=== PATIENT | male | born 1955 | race Caucasian/White ===

== ENCOUNTER 2022-09-21 09:44 | Emergency (ER) | payer OTHER, SELFPAY ==
[2022-09-21 09:45] VITALS: BP 152/84; PULSE 94; RESP 18; TEMP 36.3; O2SAT 99; BMI 29.4
--- NOTE | 2022-09-21 10:26 | CT_ITS ---
STUDY: CT ABDOMEN AND PELVIS WITHOUT CONTRAST REASON FOR EXAM: Male, 67 years old. Right flank pain. History of kidney stones. RADIATION DOSAGE (If Supplied By Facility): CTDIvol = ( 7.93 ) mGy, DLP = ( 372.27 ) mGycm TECHNIQUE: Transaxial images were obtained from the dome of the diaphragm to the symphysis pubis without oral contrast, and without intravenous contrast. Sagittal and coronal images were reconstructed. Individualized dose optimization techniques were used for this CT. COMPARISON: Comparison is made with prior study dated 02/19/2016. FINDINGS: Stable mild increased markings at the lung bases suggestive of atelectasis and/or scarring. Coronary artery calcification. Mild degree of anterior pericardial thickening suggestive of a small effusion. There is hepatomegaly with diffuse hepatic enlargement. Normal gallbladder and extrahepatic biliary system. Normal spleen. There are pancreatic calcifications in the distribution of the ducts consistent with chronic pancreatitis. Normal bilateral adrenal glands. Moderate degree of right hydronephrosis due to a 3.3 mm calculus at the right ureterovesical junction. Normal left kidney. There is a small hiatal hernia. Normal small intestine. Large amount of fecal material is seen throughout the colon. The appendix is visualized and appears normal. There is diffuse atherosclerotic calcification of the abdominal aorta, without a demonstrated aneurysm. Normal inferior vena cava. Normal retroperitoneum. Normal urinary bladder. There is enlargement of the prostate gland. It measures 5.5 cm by 6 cm. This causes indentation of the bladder base. Prostatic calcifications are seen within it. There is a small umbilical hernia containing fat. There is evidence of a calcified injection granulomas overlying the right gluteal muscle. There are diffuse degenerative changes of the visualized lumbar spine. CT/Abdomen/Pelvis without Cont IMPRESSION: Right-sided hydronephrosis due to a 3.3 mm calculus at the right ureterovesical junction. Hepatomegaly. Findings suggestive of a small pericardial effusion. Prostatic enlargement with indentation at the bladder base. Punctate calcifications in the pancreas most likely secondary to chronic pancreatitis. Electronically Signed: Emile Fernandez MD at 11:27 EST ,
--- NOTE | 2022-09-21 10:27 | EDS_ITS ---
HPI History of Present Illness Chief Complaint: Back Detail of Chief Complaint: Right flank pain intermittent for 2 weeks. Informant: patient Onset/Context/Timing Onset: Weeks Context: Gradual Onset Timing: Intermittent Quality: Sharp Current Severity: Mild Maximum Severity: Mild Worsened by: improves with Nothing Relieved by: Nothing Associated Symptoms Associated Symptoms: Negative for Numbness, Tingling, Abdominal Pain, Dysuria, Unable to Ambulate, Unable to Transfer, Urinary Retention, Constipation or Fecal Incontinence Narrative Narrative: 67-year-old male history of prior kidney stone. Complaining of right flank pain intermittently for 2 weeks. Patient states initially he thought this was sciatica but states nothing particular makes it better or worse. Naprosyn has been no relief. There is no change with movement. He denies any fall injury or trauma. No hematuria. He had a kidney stone in the past and said it felt somewhat like this. Denies any fever or chills. Denies any difficulty urinating. Prior similar symptoms: Yes Recent Illness/Hospitalization: No PFSH PFSH Medical History BPH (benign prostatic hyperplasia) Kidney stone Sciatic nerve disease Home Medications tamsulosin 0.4 mg capsule 0.4 mg PO DAILY ##10 02/19/16 [Rx Last Taken Unknown] hydrocodone-acetaminophen 5-325mg 5mg-325mg 1 tab PO Q4H PRN pain 3 days #12 tabs 09/21/22 [Rx Last Taken Unknown] Allergy/AdvReac Type Severity Reaction Status Date / Time No Known Allergies Allergy Verified 09/21/22 09:45 Social History Smoking Status: Never smoker ROS ROS ED ROS Narrative Right flank pain. No other complaints. Review of Systems ROS Unobtainable: Denies due to encephalopathy Constitutional Constitutional ED: Denies chills or fever(s) Eyes Eyes: Denies blurry vision ENT ENT ED: Denies ear pain Cardiovascular Cardiovascular: Denies chest pain Respiratory/Chest Respiratory/Chest: Denies dyspnea Gastrointestinal Gastrointestinal: Denies abdominal pain Genitourinary Genitourinary ED: Denies dysuria or hematuria Musculoskeletal Musculoskeletal: Reports back pain; Denies arthralgias Integumentary Denies abscess or Abrasions Neurologic Neurologic: Denies headache(s) Psychiatric Psychiatric: Denies anxiety Endocrine Endocrinology: Denies cold intolerance Hematologic/Lymphatic Hematologic/Lymphatic: Denies easy bleeding Allergic/Immunologic Allergic/Immunologic ED: Denies mouth swelling or tongue swelling EXAM Physical Exam Narrative Exam Narrative: Well-appearing 67-year-old male. Vital signs stable afebrile. No acute distress. Standing up as I walked in the room. H EENT exam unremarkable. Lungs clear. Heart regular rhythm. Abdomen soft nontender. Moving all 4 extremities. Back there is no reproducible tenderness. It is along his right flank below his ribs. There is no ecchymosis or bruising. No SI joint tenderness. Negative straight leg raise. Neurovascular exam is normal. Const Vital Signs: 09/21/22 09:45 Temperature 97.3 F L Temperature Source Temporal Pulse Rate 94 Respiratory Rate 18 Blood Pressure 152/84 H Blood Pressure Mean 106 Pulse Ox 99 Oxygen Delivery Method Room Air Positive well nourished and well developed; Negative for obese, cachectic, contractures or unkempt General Appearance ED: well developed and NAD; Negative for unkempt, cachectic, contractures or pallor Nutritional Appearance: Negative for cachectic or obese HEENT Reports moist mucous membranes Negative for trauma or tenderness Eyes PERRL and EOMs intact bilaterally Neck no lymphadenopathy, supple and no JVD General: Negative for tenderness Thyroid: Negative for other Cardio regular rate, regular rhythm, S1 normal heart sound, S2 normal heart sound and no murmurs GI normal to inspection, nondistended, normoactive bowel sounds, soft to palpation, non-tender, non-distended and no masses Inspection: Negative for abdominal distention Palpation: Negative for tender or guarding Back/Spine normal to inspection and no thoracic nor lumbar tenderness Back/Spine Narrative: No reproducible flank tenderness. Thoracic Spine / Upper Back: Negative for paraspinal muscle tenderness Lumbar Spine / Lower Back: Negative for ROM limited Extremity normal to inspection General Extremety ED: Negative for edema General Extremity: Negative for edema Neuro oriented x3 Sensorium / Orientation: alert; Negative for confused, lethargic or stuporous Motor Exam: strength 5/5 throughout Psych mental status grossly normal Appearance: Negative for unkempt Attitude: No agitated Mood & Affect: Negative for depressed, sad or tearful Skin no rashes or lesions noted and no wounds General Skin Exam: Negative for jaundice or pallor Lesions: No lesion noted Rashes: No rashes noted Trauma: Negative for abrasion Wounds: Negative for wounds noted MDM MDM MDM Narrative Medical decision making narrative: 67-year-old male with right flank pain. History of prior kidney stone. The pain has been intermittent for 2 weeks. He has no reproducible musculoskeletal pain. Clinically this is not sciatica. He will undergo a CAT scan [place] kidney stone. Screening labs and urinalysis. Received morphine and Zofran for pain. Repeat exam at 11:46 AM patient doing well. Initially ordered him some morphine for pain which she did not take because he said he needed to drive later on he said the pain is much better. He and I went over his test results. 1 that he has a 3.3 mm kidney stone at the right UVJ. 2 that is creatinine was 1.54 and that he needs to have that rechecked. Needs to have that reevaluated. He is normally [facility] care [facility] at [facility]. He will follow-up with them for his kidney function and a repeat creatinine in several weeks. He will follow-up with Dr. Arias Avila of urology locally. Lab Data Attestation: I reviewed the patient's lab results. Lab results narrative: CBC shows a white count 9.6. H&H of 14 and 43. Electrolytes unremarkable gap 7 BUN 26 creatinine 1.54. Glucose 112. Patient's been unable to urinate so we do not have a urinalysis. CAT scan consistent with a 3.3 mm right UVJ stone with hydronephrosis. No old labs available in our system for comparison. Labs: Laboratory Results - last 24 hr 09/21/22 09/21/22 10:30 10:30 WBC 9.6 RBC 4.35 L Hgb 14.4 Hct 43.1 MCV 99.1 H MCH 33.1 H MCHC 33.4 RDW Std Deviation 54.0 H RDW Coeff of Hugo 14.6 Plt Count 231 MPV 9.6 Immature Gran % (Auto) 0.600 Neut % (Auto) 68.9 Lymph % (Auto) 13.2 L Toole % (Auto) 15.1 H Eos % (Auto) 1.6 Baso % (Auto) 0.6 Absolute Neuts (auto) 6.6 Absolute Lymphs (auto) 1.27 Nucleated RBC % 0 Sodium 137 Potassium 4.2 Chloride 103 Carbon Dioxide 27.0 Anion Gap 7 BUN 26 H Creatinine 1.54 H Estim Creat Clear Calc 49.38 Est GFR (MDRD) Af Amer 59 L Est GFR (MDRD) Non-Af 48 L BUN/Creatinine Ratio 16.9 Glucose 112 H Calcium 8.7 Radiography Diagnostic Testing: Clinical Impression(s) from Imaging Studies Abdomen/Pelvis CT 09/21/22 10:26 IMPRESSION: Right-sided hydronephrosis due to a 3.3 mm calculus at the right ureterovesical junction. Hepatomegaly. Findings suggestive of a small pericardial effusion. Prostatic enlargement with indentation at the bladder base. Punctate calcifications in the pancreas most likely secondary to chronic pancreatitis. Electronically Signed: Emile Fernandez MD at 11:27 EST , Discharge Plan Triage Chief Complaint: Back ED Provider: Cayden Augustine Dx/Rx/DC Orders Clinical Impression: Acute right flank pain, Kidney stone on right side, Mild renal insufficiency Instructions: ED Kidney Stone w/ Colic Prescriptions: New hydrocodone-acetaminophen 5-325 mg tablet 1 tab PO Q4H PRN (Reason: pain) 3 Days Qty: 12 0RF No Action tamsulosin 0.4 MG capsule 0.4 mg PO DAILY Qty: 10 0RF Primary Care Provider: [facility] Referrals: Dakota Avila MD [Med Staff - Active Staff] - As soon as possible [facility] [Primary Care Provider] - 1-2 Weeks Activity Restrictions/Additional Instructions: Plenty of fluid. Strain your urine looking for the past stone. [place] for pain. As needed. Call and follow-up with a local urologist Dr. Arias Avila for further evaluation of your kidney stone. [facility]. Your creatinine today was 1.54 which is above normal. Disposition Disposition: Home, Self Care
[2022-09-21] MEDS: Ondansetron 4 MG/2 ML Vial IV (10:36)
[2022-09-21 10:55] LABS: Absolute Lymphocyte Count 1.27 X10^3/uL (0.83-4.51); Absolute Neutrophil Count 6.6 X10^3/uL (2.0-7.7); Basophil# 0.06 X10^3/uL; Basophil% 0.6 % (0-1); Eosinophil# 0.15 X10^3/uL; Eosinophils% 1.6 % (0-5); Hematocrit 43.1 % (40-54); Hemoglobin 14.4 g/dL (13.0-16.5); Lymphocyte # 1.27 X10^3/ul (0.83-4.51); Lymphocyte % 13.2 % (19-41); Mean Corp Hgb Conc 33.4 g/dL (32-36); Mean Corpuscular Hgb 33.1 pg (27.0-32.0); Mean Corpuscular Volume 99.1 fL (80-94); Mean Platelet Vol. 9.6 fl (6.2-12.0); Monocyte# 1.45 X10^3/uL; Monocyte% 15.1 % (0-10); NRBC Flagged by Analyzer 0 % (0-5); Neutrophil # 6.61 X10^3/uL (2.7-7.7); Neutrophil % 68.9 % (47-70); Platelet Count 231 K/mm3 (150-450); RBC Distribution Width CV 14.6 % (11.6-14.6); Red Blood Count 4.35 M/mm3 (4.6-6.2); White Blood Count 9.6 K/mm3 (4.4-11.0)
[2022-09-21 11:12] LABS: Anion Gap 7 (5-15); BUN 26 mg/dL (7-18); BUN/Creat Ratio 16.9 RATIO (10-20); Calcium,Total 8.7 mg/dL (8.5-10.1); Chloride 103 mmol/L (98-107); Creatinine, Serum 1.54 mg/dL (0.70-1.30); EST Glomerular Filtration Rate 48 mL/min (>60); Est Glom Filt Rate - Afr Amer 59 mL/min (>60); Estimated Creatinine Clearance 49.38 ml/min; Glucose 112 mg/dL (74-106); Potassium 4.2 mmol/L (3.5-5.1); Sodium Level 137 mmol/L (136-145)
[2022-09-21] MEDS: Morphine 4 MG/ML Syringe IV (12:01)
[2022-09-21] MEDS: morphine 8 MG/ML Syringe 6 MG IV (12:41)
[2022-09-21 12:50] VITALS: BP 160/72; PULSE 70; RESP 16; O2SAT 98
== END 2022-09-21 12:51 | disposition home or self-care (01) ==
PROVIDERS: Emergency Provider Emergency Medicine; Visit Provider Emergency Medicine
DX: R10.9 Unspecified abdominal pain (principal); N20.0 Calculus of kidney; N40.0 Benign prostatic hyperplasia without lower urinary tract symptoms; Z79.899 Other long term (current) drug therapy
CPT/HCPCS: 74176; 80048; 85025; 96374; 96375; 96376; 99283; A4216; J2405

== ENCOUNTER → 2022-11-01 | Outpatient (CLI) | payer MEDICARE, SELFPAY ==
--- NOTE | 2022-11-01 13:13 | CT_ITS ---
STUDY: CT ABDOMEN AND PELVIS WITHOUT CONTRAST REASON FOR EXAM: Male, 67 years old. CALCULUS IN BLADDER RADIATION DOSAGE (If Supplied By Facility): CTDIvol = ( 8.30 ) mGy, DLP = ( 373.27 ) mGycm TECHNIQUE: Transaxial images were obtained from the dome of the diaphragm to the symphysis pubis without oral contrast, and without intravenous contrast. Sagittal and coronal images were reconstructed. Individualized dose optimization techniques were used for this CT. COMPARISON: Comparison is made with prior study dated September 21, 2022. FINDINGS: The visualized lung bases are unremarkable. Mild coronary artery calcifications. Normal liver. Normal gallbladder and extrahepatic biliary system. Normal spleen. There are pancreatic calcifications in the distribution of the ducts consistent with chronic pancreatitis. Normal bilateral adrenal glands. A right-sided double-J stent catheter is visualized with the proximal tip in the upper pole calyx of the right kidney and distal tip within the urinary bladder. Normal left kidney. There is a small hiatal hernia. Normal small intestine. Moderate amount of fecal material is seen in the colon. The appendix is visualized and appears normal. There is diffuse atherosclerotic calcification of the abdominal aorta, without a demonstrated aneurysm. Normal inferior vena cava. Normal retroperitoneum. Normal urinary bladder. No calculus is seen within the urinary bladder. There is enlargement of the prostate gland. The prostate measures 4.2 cm x 4.9 cm. This causes indentation at the bladder base. Normal abdominal wall. There are diffuse degenerative changes of the visualized lumbar spine. CT/Abdomen/Pelvis without Cont IMPRESSION: A right-sided double-J stent catheter is seen. No calculus is seen in the bladder at this time. Electronically Signed: Emile Fernandez MD at 15:16 EDT ,
== END | disposition home or self-care (01) ==
PROVIDERS: Referring Provider Urology; Visit Provider Urology
DX: N20.1 Calculus of ureter (principal)
CPT/HCPCS: 74176

== ENCOUNTER → 2022-12-13 | Outpatient (CLI) | payer MEDICARE, SELFPAY ==
--- NOTE | 2022-12-13 09:30 | PET_ITS ---
EXAMINATION: FDG PET-CT INDICATIONS: A 67-year-old male with history of pulmonary nodularity. COMPARISON EXAMINATION: None available INDEX LESION SIZE SUV INTERPRETATION Left upper lung field, left upper lobe 13.8-mm 5.6 Fulfills quantitative criteria for viable neoplasm, histopathologic analysis recommended TECHNIQUE: Following the intravenous administration of 11.73 mCi of F-18 deoxyglucose via the right antecubital fossa, multiplanar image acquisitions of the neck, chest, abdomen and pelvis to level of mid thigh, obtained at one hour post radiopharmaceutical administration contemporaneously interpreted with the current CT of the neck, chest, abdomen and pelvis, to level of mid thigh, dated 12/13/22 via coregistration reveals: BLOOD GLUCOSE LEVEL:?? 104 mg/dl?HEIGHT:?70 inches?WEIGHT: 206 lbs. FINDINGS: Head/Neck: There is no evidence of abnormal increased glucose metabolism in the pharyngeal mucosal space, parapharyngeal space, bilateral-lateral and anterior neck, hypopharynx and distribution of the laryngeal structures. The visualized portion of the cerebral cortical-subcortical structures demonstrate symmetric and preserved glucose metabolism. CHEST: Focal increased radiopharmaceutical concentration is defined in the left upper posterolateral lung zone, the left upper lobe. The calculated maximal standard uptake value is 5.6. The maximal axial diameter of the parenchymal density is 15.8-mm. Prominent radiopharmaceutical concentration is identified in the left ventricular myocardium commensurate with the [place]. Pertinent chest CT findings are as follows. Additional density defined in the right lower posterolateral lung zone, right lower lobe demonstrates no evidence of increased FDG uptake. Right and left axillary soft tissue densities are ametabolic. Abdomen/Pelvis: Normal physiologic distribution of the radiopharmaceutical is apparent in the hepatic and splenic parenchyma, both renal units, bladder and visualized intestinal tract. Diffuse radiopharmaceutical concentration is noted in all four quadrants of the abdomen and pelvis. Abdomen and pelvis CT findings are as follows. Post-procedural change is noted in the left upper abdomen. There is atherosclerotic calcification defined in the abdominal aorta without evidence of dilatation-aneurysm formation. Pelvic arterial calcification is observed. Calcification is noted within the prostate gland. Right and left inguinal soft tissue densities are non-glucose avid. Prominent collecting system, renal pelvis activity is noted in the bilateral kidneys. Skeletal: Degenerative changes are noted in the cervical, thoracic and lumbar spine without evidence of increased radiopharmaceutical concentration. There are no well-defined sclerotic-lytic changes manifest on review of the appendicular-axial skeletal structures. PET/PET/CT Tumor Base -Thigh Init IMPRESSION: 1. Increased radiopharmaceutical concentration manifest in the left upper lung, left upper lobe fulfills quantitative criteria for viable neoplasm with single point technique. Histopathologic analysis is recommended. 2. No other quantitatively significant hypermetabolic abnormalities are noted. Electronic Signature Richard Escudero D.O. Accurate Quantification of SUVs for this report are calculated using the exclusive Keyword [employer]. ([place] Patent No. [id number] [id number] B2 [phone] [place] patent [phone]). Standardization and correction of the FDG SUV metric via [employer] technology allow for vendor non-specific objective quantitative examination comparison and optimization of the sensitivity and specificity of the FDG PET-CT examination. Electronically Signed: Richard Escudero, at 22:55 EDT ,
== END | disposition home or self-care (01) ==
DX: R91.1 Solitary pulmonary nodule (principal)
CPT/HCPCS: 78815; A9552

== ENCOUNTER → 2023-02-14 | Outpatient (CLI) | payer MEDICARE, SELFPAY ==
--- NOTE | 2023-02-15 09:29 | PFT ---
INTRODUCTION: The patient is a 67-year-old male that presents for pulmonary function studies secondary to a diagnosis of lung nodule. Respiratory therapy reported good patient effort. Bronchodilators were used during testing. INTERPRETATION: Forced expiration spirometry demonstrates the presence of a mild large airways obstructive ventilatory defect. There was no significant response to aerosolized bronchodilators. Spirograms are of good quality but do not plateau indicating slow emptying of the lungs. Body plethysmography was performed and revealed lung volumes to be within normal limits. Diffusing capacity by single breath CO was also within normal limits. IMPRESSION: Irreversible mild large airways obstructive ventilatory impairment with preserved lung volumes and diffusing capacity.
== END | disposition home or self-care (01) ==
LOC: PSN 10:57
DX: R91.1 Solitary pulmonary nodule (principal)
CPT/HCPCS: 94060; 94726; 94729

== ENCOUNTER 2023-04-23 15:33 | Emergency (ER) | payer MEDICARE, SELFPAY ==
[2023-04-23 15:34] VITALS: BP 129/86; PULSE 90; RESP 18; TEMP 35.9; O2SAT 98; BMI 28.2
--- NOTE | 2023-04-23 16:30 | ED.VIS.BACK ---
HPI History of Present Illness Chief Complaint: Back Informant: patient Onset/Context/Timing Onset: Yesterday Context: Gradual Onset Timing: Continuous Quality: Sharp (At times) and Dull Location: Buttock Worsened by: improves with Movement Relieved by: Medications (Aleve) Associated Symptoms Associated Symptoms: Negative for Numbness, Tingling, Radiation to Right Leg, Radiation to Left Leg, Fever, Abdominal Pain, Dysuria, Unable to Ambulate, Unable to Transfer, Urinary Retention, Urinary Incontinence, Constipation or Fecal Incontinence Narrative Narrative: Presents with sciatic pain that began yesterday. Patient states it came on gradually. Patient states he took 2 Aleve yesterday morning which helped. Patient states he took 2 more later in the evening which also helped. Patient describes his pain as constant dull but sharp at times. Patient states it is over the left gluteal area. Patient denies any trauma or injury. Patient denies any radiation of pain down his left leg. Patient denies any bowel or bladder changes. Patient denies any saddle anesthesia. [facility] Medical History BPH (benign prostatic hyperplasia) Kidney stone Sciatic nerve disease Home Medications tamsulosin 0.4 mg capsule 0.4 mg PO DAILY ##10 02/19/16 [Rx Last Taken Unknown] cyclobenzaprine 10 mg tablet 10 mg PO QHS PRN PRN Muscle Spasm #10 TABLETS 04/23/23 [Rx Last Taken Unknown] naproxen 500 mg tablet (Naprosyn) 500 mg PO BID PRN pain #20 tabs 04/23/23 [Rx Last Taken Unknown] Allergy/AdvReac Type Severity Reaction Status Date / Time No Known Allergies Allergy Verified 09/21/22 09:45 Surgical History no surgical history no surgical history Social History (Updated 04/23/23 @ 16:[address] Liam Fritz DO) Smoking Status: Never smoker alcohol intake: current alcohol intake frequency: 0-2 drinks per day Alcohol type: beer ROS ROS ED Constitutional Constitutional ED: Denies chills or fever(s) Eyes Eyes: Denies blurry vision or change in vision ENT ENT ED: Denies rhinorrhea or sore throat Cardiovascular Cardiovascular: Denies chest pain or palpitations Respiratory/Chest Respiratory/Chest: Denies cough or dyspnea Gastrointestinal Gastrointestinal: Denies nausea or vomiting Genitourinary Genitourinary ED: Denies dysuria or hematuria Musculoskeletal Musculoskeletal: Reports back pain; Denies neck pain Integumentary Denies abscess or rash Neurologic Neurologic: Denies headache(s) or weakness Allergic/Immunologic Allergic/Immunologic ED: Denies mouth swelling or urticaria EXAM Physical Exam Const Vital Signs: 04/23/23 15:34 Temperature 96.7 F L Temperature Source Temporal Pulse Rate 90 Respiratory Rate 18 Blood Pressure 129/86 H Blood Pressure Mean 100 Pulse Ox 98 Oxygen Delivery Method Room Air Positive well nourished and well developed General Appearance ED: well developed and NAD HEENT Reports moist mucous membranes Neck supple and no JVD Back/Spine Back/Spine Narrative: There is mild tenderness over the left lower lumbar paraspinal muscles. There is mild tenderness over the left sciatic notch. There is mild tenderness over the left gluteal area. Range of motion was slightly limited in all motions of the lumbar spine secondary to pain. Strength is 5/5 bilaterally in the lower extremities. There are no sensory deficits noted. Deep tendon reflexes are 2/4 bilaterally. Straight leg raises were negative bilaterally. Lumbar Spine / Lower Back: ROM limited and straight leg raise negative bilaterally Extremity normal to inspection General Extremety ED: Negative for edema or tenderness General Extremity: Negative for edema Neuro oriented x3 and no sensory deficits noted Sensorium / Orientation: alert Motor Exam: strength 5/5 throughout Psych mental status grossly normal Skin no rashes or lesions noted MDM MDM MDM Narrative Medical decision making narrative: Patient was advised that this is most likely a flareup of his sciatica. Patient was given injection of Toradol and oral dose of Flexeril here. Patient states he did drive himself to the emergency department but will be able to get a ride home. Patient was given prescriptions for Naprosyn and Flexeril. Patient was instructed to follow-up with his primary care physician in 5 to 7 days. Patient was referred to return if worse in any way. Patient understood and was agreeable with the plan. All questions were answered. Discharge Plan Triage Chief Complaint: Back ED Provider: Liam Fritz Dx/Rx/DC Orders Clinical Impression: Sciatica of left side Instructions: ED Sciatica Prescriptions: New cyclobenzaprine [cyclobenzaprine] 10 mg tablet 10 mg PO QHS PRN PRN (Reason: Muscle Spasm) Qty: 10 0RF naproxen [Naprosyn] 500 mg tablet 500 mg PO BID PRN (Reason: pain) Qty: 20 0RF No Action tamsulosin 0.4 MG capsule 0.4 mg PO DAILY Qty: 10 0RF [facility] Care Provider[facility] [facility] [[facility] - 5-7 Days Disposition Disposition: Home, Self Care
[2023-04-23] MEDS: cycloBENZAPRine HCl 5 MG TABLET PO (16:52)
[2023-04-23] MEDS: Ketorolac 30 MG/ML Syringe IM (16:53)
[2023-04-23 17:01] VITALS: PULSE 88; RESP 16; O2SAT 98
== END 2023-04-23 17:06 | disposition home or self-care (01) ==
PROVIDERS: Emergency Provider Emergency Medicine; Visit Provider Emergency Medicine
DX: M54.32 Sciatica, left side (principal)
CPT/HCPCS: 96372; 99283

== ENCOUNTER 2025-03-19 10:46 | Emergency (ER) | payer OTHER, SELFPAY ==
[2025-03-19 10:47] VITALS: BP 131/82; PULSE 90; RESP 17; TEMP 36.4; O2SAT 97; BMI 28.4
--- NOTE | 2025-03-19 11:09 | EDS_ITS ---
HPI History of Present Illness Chief Complaint: Upper Extremity Injury PFSH PFSH Medical History (Updated 04/17/24 @ 11:48 by Katherine Grimes) Lung cancer BPH (benign prostatic hyperplasia) Sciatic nerve disease Kidney stone Home Medications ?Medication ?Instructions ?Recorded ?Last Taken ?Type naproxen 500 mg tablet (Naprosyn) 500 mg PO BID PRN pa in #20 tabs 04/23/23 Unknown Rx ascorbic acid (vitamin C) 1,000 mg 1 g PO Q6H 04/17/24 Unknown History capsule cholecalciferol (vitamin D3) 25 25 mcg PO QDAY 4 Unknown History mcg (1,000 unit) capsule coenzyme Q10 75 mg capsule (Ultra 75 mg PO QDAY Unknown History CoQ10) magnesium-potassium 85 mg-100 mg cap PO 04/17/24 Unkno wn History capsule multivitamin 1 tab PO QAM 04/17/24 Unknow n History Allergy/AdvReac Type Severity Reaction Status Date / Time No Known Allergies Allergy Verified 03/19/25 10:49 Surgical History (Updated 04/17/24 @ 11:42 by Katherine Grimes) History of lung surgery Social History (Updated 04/17/24 @ 11:42 by Katherine Grimes) Smoking Status: Former smoker alcohol intake: current alcohol intake frequency: 0-2 drinks per day Alcohol type: beer EXAM Physical Exam Const Vital Signs: 03/19/25 10:47 Temperature 97.5 F L Temperature Source Temporal Pulse Rate 90 Respiratory Rate 17 Blood Pressure 131/82 H Blood Pressure Mean 98 Pulse Ox 97 Oxygen Delivery Method Room Air MDM MDM MDM Narrative Medical decision making narrative: HISTORY OF PRESENT ILLNESS: Chief complaint: Left shoulder pain 69-year-old male presents left shoulder pain REVIEW OF SYSTEMS: Pertinent positives: [] Pertinent negatives: [] PHYSICAL EXAM: Nursing triage notes reviewed, Vital signs reviewed Constitutional: please see mdm HENT: MMM Eyes: Pupils equal round and reactive to light, Extraocular muscles intact Neck: No stridor, no JVD, full neck ROM Lungs: Clear to auscultation, No wheezing or rales. No increased work of breathing, no conversational dyspnea, no accessory muscle use, no nasal flaring. No respiratory distress noted Heart: Regular rate and rhythm, No murmurs, No rubs and No gallops, 2+ distal pulses (radial, femoral, posterior tibial) in all extremities Abdomen: Soft, there is no tenderness, rigidity, rebound or guarding, no obvious peritoneal signs, no palpable pulsatile abdominal masses, no auscultated abdominal bruit : No CVAT Extremities: No edema Neuro: No new focal neurological deficits, cranial nerves II through XII intact, 5/5 strength in all present extremities. Intact sensation to light touch in all present extremities, 2+ reflexes bilateral patella tendons. Skin: No rash or lesions noted MEDICAL DECISION MAKING: Chief Complaint: please see HPI External records reviewed: Reviewed prior imaging studies Factors affecting care: Lung cancer Social determinants of health: none History obtained from others: none Consults: none MDM Narrative: The patient was initially hemodynamically stable, afebrile and nontoxic- appearing. I considered the following differential diagnosis: [] I obtained [] to further determine if the patient was suffering from a life- threatening etiology. [] ALL IMAGES (IF OBTAINED) HAVE BEEN PERSONALLY REVIEWED AND INTERPRETED BY MYSELF. [] The patient and/or family, caregivers express understanding. The patient and/or family, caregivers agrees with the plan. Shared decision making: I will have a discussion with the patient and or visitors regarding risk/benefits of further testing or admission. They will be made aware of of the risk/benefits inherent in this decision they will be given the opportunity to voice understanding. Total critical care time today provided was at least 0 [] minutes. This excludes separately billable procedures. Critical care time (if documented) is secondary to the patient having high probability of clinically significant/life threatening deterioration in the patient's condition which required my urgent intervention. Impression: [] Dispo: [] This note was generated with [employer] dictation software. It may contain incorrect words, spelling, and punctuation that were not noted in review of the chart prior to signing. Discharge Plan Triage Chief Complaint: Upper Extremity Injury ED Provider: Alex Henning Dx/Rx/DC Orders Prescriptions: No Action multivitamin Tablet 1 tab PO QAM ascorbic acid (vitamin C) 1,000 mg capsule 1 g PO Q6H cholecalciferol (vitamin D3) 25 mcg (1,000 unit) capsule 25 mcg PO QDAY Ultra CoQ10 75 mg capsule 75 mg PO QDAY magnesium-potassium 85-100 mg capsule PO naproxen [Naprosyn] 500 mg tablet 500 mg PO BID PRN (Reason: pain) Qty: 20 0RF [facility] [Primary Care Provider] - Print Language: Faroese
--- NOTE | 2025-03-19 11:09 | EX.ED.UPPERE ---
HPI History of Present Illness Chief Complaint: Upper Extremity Injury PFSH PFS Medical History (Updated 04/17/24 @ 11:48 by Katherine Grimes) Lung cancer BPH (benign prostatic hyperplasia) Sciatic nerve disease Kidney stone Home Medications ?Medication ?Instructions ?Recorded ?Last Taken ?Type naproxen 500 mg tablet (Naprosyn) 500 mg PO BID PRN pain #20 tabs 04/23/23 Unknown Rx ascorbic acid (vitamin C) 1,000 mg 1 g PO Q6H 04/17/24 Unknown History capsule cholecalciferol (vitamin D3) 25 25 mcg PO QDAY 04/17/24 Unknown History mcg (1,000 unit) capsule coenzyme Q10 75 mg capsule (Ultra 75 mg PO QDAY 04/17/24 Unknown History CoQ10) magnesium-potassium 85 mg-100 mg cap PO 04/17/24 Unknown History capsule multivitamin 1 tab PO QAM 04/17/24 Unknown History Allergy/AdvReac Type Severity Reaction Status Date / Time No Known Allergies Allergy Verified 03/19/25 10:49 Surgical History (Updated 04/17/24 @ 11:42 by Katherine Grimes) History of lung surgery Social History (Updated 04/17/24 @ 11:42 by Katherine Grimes) Smoking Status: Former smoker alcohol intake: current alcohol intake frequency: 0-2 drinks per day Alcohol type: beer EXAM Physical Exam Const Vital Signs: 03/19/25 10:47 Temperature 97.5 F L Temperature Source Temporal Pulse Rate 90 Respiratory Rate 17 Blood Pressure 131/82 H Blood Pressure Mean 98 Pulse Ox 97 Oxygen Delivery Method Room Air MDM MDM MDM Narrative Medical decision making narrative: HISTORY OF PRESENT ILLNESS: Chief complaint: Left shoulder pain 69-year-old male presents left shoulder pain. Notes 2 to 3 days of left shoulder pain. 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 Notes pain is worse when he tries to lift his arm above his head or tries to touch his back with the left arm. Does not think is broken or dislocated. Requesting intra-articular injection. REVIEW OF SYSTEMS: Pertinent positives: Shoulder pain Pertinent negatives: [ Numbness, tingling, loss of sensation PHYSICAL EXAM: Nursing triage notes reviewed, Vital signs reviewed Constitutional: please see mdm Extremities: No edema, TTP over posterior deltoid, TTP Neuro: Intact 5/5 strength with ok sign (median), intact finger abduction (ulnar) intact wrist extension (radial n). Intact sensation in the radial, ulnar, and median nerve distributions. Skin: No rash or lesions noted MEDICAL DECISION MAKING: Chief Complaint: please see HPI External records reviewed: Reviewed prior imaging studies Factors affecting care: Lung cancer Social determinants of health: none History obtained from others: none Consults: none MDM Narrative: The patient was initially hemodynamically stable, afebrile and nontoxic-appearing. Exam with TTP over left deltoid. Consistent with likely muscle strain. Low suspicion for fracture or dislocation. Offered x-ray however patient refused that he did not think he had a fracture or dislocation. Gave Ortho follow-up. Gave muscle relaxer. Patient is already on prednisone. Encouraged Tylenol ibuprofen. Encouraged decreased activity, RICE therapy and range of motion exercises. The patient and/or family, caregivers express understanding. The patient and/or family, caregivers agrees with the plan. Shared decision making: I will have a discussion with the patient and or visitors regarding risk/benefits of further testing or admission. They will be made aware of of the risk/benefits inherent in this decision they will be given the opportunity to voice understanding. Total critical care time today provided was at least 0 minutes. This excludes separately billable procedures. Critical care time (if documented) is secondary to the patient having high probability of clinically significant/life threatening deterioration in the patient's condition which required my urgent intervention. Impression: 1. Acute left shoulder pain 2. Acute deltoid strain 3. Acute rotator cuff strain Dispo: Discharge home This note was generated with [employer] dictation software. It may contain incorrect words, spelling, and punctuation that were not noted in review of the chart prior to signing. Discharge Plan Triage Chief Complaint: Upper Extremity Injury ED Provider: Alex Henning Dx/Rx/DC Orders Prescriptions: No Action multivitamin Tablet 1 tab PO QAM ascorbic acid (vitamin C) 1,000 mg capsule 1 g PO Q6H cholecalciferol (vitamin D3) 25 mcg (1,000 unit) capsule 25 mcg PO QDAY Ultra CoQ10 75 mg capsule 75 mg PO QDAY magnesium-potassium 85-100 mg capsule PO naproxen [Naprosyn] 500 mg tablet 500 mg PO BID PRN (Reason: pain) Qty: 20 0RF [facility] [Primary Care Provider] - Print Language: Malay
[2025-03-19] MEDS: Orphenadrine 60 MG/2 ML Ampul IM (11:54)
[2025-03-19 12:07] VITALS: BP 128/84; PULSE 86; RESP 16; TEMP 36.6; O2SAT 99
== END 2025-03-19 12:08 | disposition home or self-care (01) ==
LOC: ED 11:59
PROVIDERS: Emergency Provider Emergency Medicine; Visit Provider Emergency Medicine
DX: S46.012A Strain of muscle(s) and tendon(s) of the rotator cuff of left shoulder, initial encounter (principal); M25.512 Pain in left shoulder; Z87.891 Personal history of nicotine dependence; X50.0XXA Overexertion from strenuous movement or load, initial encounter; Z85.118 Personal history of other malignant neoplasm of bronchus and lung; S46.812A Strain of other muscles, fascia and tendons at shoulder and upper arm level, left arm, initial encounter
CPT/HCPCS: 96372; 99283

== ENCOUNTER 2025-05-13 12:18 | Emergency (ER) | payer OTHER, SELFPAY ==
[2025-05-13 12:19] VITALS: BP 141/80; PULSE 89; RESP 18; TEMP 36.7; O2SAT 98; BMI 29.2
--- NOTE | 2025-05-13 12:39 | EX.ED.DYSGE1 ---
HPI History of Present Illness Chief Complaint: Lower Extremity Injury Narrative Narrative: 69-year-old male past medical history of previous sciatica remotely presents with low back pain that has had over the last 1 to 2 weeks. He states he has been working on the floor. He started developing pain on both sides of his low back radiating down his legs. He denies any fevers or chills, no saddle anesthesia, no loss of bowel or bladder. He states that he gets sharp pain at times in his low back and in his bilateral buttocks. He states remotely his physician used to inject him with muscle relaxers as well as anti-inflammatories. It helped him greatly. He states that this would happen to him occasionally in the when he is to power lift. [facility] Medical History Lung cancer BPH (benign prostatic hyperplasia) Sciatic nerve disease Kidney stone Home Medications ?Medication ?Instructions ?Recorded ?Last Taken ?Type naproxen 500 mg tablet (Naprosyn) 500 mg PO BID PRN pain #20 tabs 04/23/23 Unknown Rx ascorbic acid (vitamin C) 1,000 mg 1 g PO Q6H 04/17/24 Unknown History capsule cholecalciferol (vitamin D3) 25 25 mcg PO QDAY 04/17/24 Unknown History mcg (1,000 unit) capsule coenzyme Q10 75 mg capsule (Ultra 75 mg PO QDAY 04/17/24 Unknown History CoQ10) magnesium-potassium 85 mg-100 mg cap PO 04/17/24 Unknown History capsule multivitamin 1 tab PO QAM 04/17/24 Unknown History orphenadrine citrate 100 mg 100 mg PO BID PRN left shoulder 03/19/25 Unknown Rx tablet,extended release pain #14 tabs orphenadrine citrate 100 mg 100 mg PO BID PRN muscle spasm #6 05/13/25 Unknown Rx tablet,extended release tabs Allergy/AdvReac Type Severity Reaction Status Date / Time No Known Allergies Allergy Verified 05/13/25 12:21 Surgical History History of lung surgery Social History Smoking Status: Former smoker alcohol intake: current alcohol intake frequency: 0-2 drinks per day Alcohol type: beer ROS ROS ED ROS Narrative Review of systems positive for low back pain and bilateral sciatica. No fevers or chills, no saddle anesthesia, no loss of bowel or bladder. He states pain radiates from his buttocks to his posterior thighs. No recent trauma. EXAM Physical Exam Narrative Exam Narrative: Afebrile. Vital signs noted. Nontoxic-appearing. Cardiovascular examination feels regular rate and rhythm. Lungs are clear to auscultation bilaterally. Abdomen is soft and nontender without guarding or rebound. No vertebral point tenderness or bony step-off of the back. Mild tenderness to palpation bilateral sciatic notches. Straight leg raising is negative bilaterally in a supine position on the cot. He appears neurovascularly intact distally with DTRs equal and symmetric. He was seen ambulating towards the room without difficulty. Additionally he was able to drive himself here to the emergency department. Const Vital Signs: 05/13/25 12:19 Temperature 98.1 F Temperature Source Oral Pulse Rate 89 Respiratory Rate 18 Blood Pressure 141/80 H Blood Pressure Mean 100 Pulse Ox 98 Oxygen Delivery Method Room Air MDM MDM MDM Narrative Medical decision making narrative: Differential diagnosis includes but not limited to sciatica versus spinal stenosis versus cauda equina syndrome. I have very low clinical suspicion for cauda equina, and there is no muscle weakness. I have low suspicion for compression fracture, but x-rays were obtained and interpreted by myself independently. In discussion with the patient, he states he can get a ride home and he would like intramuscular injections. I ordered Toradol and Norflex. Per RN, patient refused x-rays stating that he has x-rays scheduled on the , 10 days from now. I do not feel that they are mandatory and I find this reasonable. He was administered the Toradol and Norflex and is very motivated for discharge. I feel he can be discharged safely home with follow-up. I offered to write him for anti-inflammatories and a few muscle relaxers, but he states he would like to take [id number] ibuprofen but would except a few tablets of the muscle relaxer in case he needs them tomorrow. I wrote him for 6 Norflex tablets. I feel he can be discharged to follow-up with his primary [facility] provider [facility]. Return instructions reviewed. Disposition is discharged home in stable condition. History & Record Review Discussion w/independent historian: Patient Additional record(s) reviewed:: Prior ED visit (Seen 2 years ago for sciatica) Discharge Plan Triage Chief Complaint: Lower Extremity Injury ED Provider: Augustin Zepeda Dx/Rx/DC Orders Clinical Impression: Bilateral sciatica, Low back pain Instructions: ED Back Pain (Acute or Chronic), ED Sciatica Prescriptions: New orphenadrine citrate 100 mg tablet extended release 100 mg PO BID PRN (Reason: muscle spasm) Qty: 6 0RF No Action multivitamin Tablet 1 tab PO QAM ascorbic acid (vitamin C) 1,000 mg capsule 1 g PO Q6H cholecalciferol (vitamin D3) 25 mcg (1,000 unit) capsule 25 mcg PO QDAY Ultra CoQ10 75 mg capsule 75 mg PO QDAY magnesium-potassium 85-100 mg capsule PO naproxen [Naprosyn] 500 mg tablet 500 mg PO BID PRN (Reason: pain) Qty: 20 0RF orphenadrine citrate 100 mg tablet extended release 100 mg PO BID PRN (Reason: left shoulder pain) Qty: 14 0RF [facility] [Primary Care Provider, None] Activity Restrictions/Additional Instructions: Continue your ibuprofen as directed for pain. Add the muscle relaxer as needed, but beware of drowsiness with its use. Follow-up with your primary care provider. Return with new or worsening symptoms. Print Language: Faroese Disposition Disposition: Home, Self Care
[2025-05-13] MEDS: Orphenadrine 60 MG/2 ML Ampul IM (12:45)
--- NOTE | 2025-05-13 13:01 | ED.RN ---
pt. came out to desk stating he wanted to leave, did not want x-rays. notified. pt. told he needs to wait for 10 minutes as he just got an injection and that he still needed to call for a ride.
--- NOTE | 2025-05-13 14:13 | ED.RN ---
[id number] this nurse called Jojo, Pt's pets and pet supplies salesperson, and left a message to call this nurse, and that Ulises needs to be picked up.
--- NOTE | 2025-05-13 14:16 | ED.RN ---
PT WALKED OUT. [facility] FOLLOWED PT. STATES YOU CANNOT LEAVE. PT WALKED OUT ANYWAY, FOLLOWED BY [facility], SWEARING AT STAFF
--- NOTE | 2025-05-13 14:16 | ED.RN ---
1400 pt has come out of room several times, and he was informed repeatedly that he is not allowed to drive, that Dr Goodwin had explained this to him, pt cussed and said this is [facility]. he was directed back to his room.
[2025-05-13 14:22] VITALS: BP 129/84; PULSE 81; RESP 18; TEMP 36.6; O2SAT 98
== END 2025-05-13 14:26 | disposition home or self-care (01) ==
PROVIDERS: Emergency Provider Emergency Medicine; Visit Provider Emergency Medicine
DX: M54.31 Sciatica, right side (principal); M54.50 Low back pain, unspecified; Z87.891 Personal history of nicotine dependence; Z85.118 Personal history of other malignant neoplasm of bronchus and lung; M54.32 Sciatica, left side; X58.XXXA Exposure to other specified factors, initial encounter; Y93.89 Activity, other specified
CPT/HCPCS: 96372; 99282

== ENCOUNTER → 2025-06-12 | Outpatient (CLI) | payer OTHER, SELFPAY ==
[2025-06-12 16:50] LABS: Hematocrit 45.6 % (40-54); Hemoglobin 15.3 g/dL (13.0-16.5); Immature Granulocytes Count 0.090 X10^3/uL (0.0-0.0); Mean Corp Hgb Conc 33.6 g/dL (32-36); Mean Corpuscular Volume 100.0 fL (80-94); Mean Platelet Vol. 10.1 fl (6.2-12.0); NRBC Flagged by Analyzer 0 % (0-5); Platelet Count 203 K/mm3 (150-450); RBC Distribution Width CV 15.7 % (11.6-14.6); RBC Distribution Width SD 58.1 fl (35.1-43.9); Red Blood Count 4.56 M/mm3 (4.6-6.2); White Blood Count 8.3 K/mm3 (4.4-11.0)
[2025-06-12 17:18] LABS: AST(SGOT) 47 U/L (<=37); Alanine Aminotransfer ALT/SGPT 46 U/L (<=46); Albumin, Serum 3.6 g/dL (3.4-4.8); Alkaline Phosphatase 78 U/L (40-129); Anion Gap 8 (5-15); BUN 20 mg/dL (4-19); BUN/Creat Ratio 21.2 RATIO (10-20); Calcium,Total 8.4 mg/dL (7.6-11.0); Carbon Dioxide 25.5 mmol/L (21.0-32.0); Chloride 103 mmol/L (98-108); Globulin 2.5 g/dL (2.2-4.2); Glucose 84 mg/dL (70-99); Potassium 4.7 mmol/L (3.3-5.1)
[2025-06-12 17:26] LABS: Pro- Brain NATRIURETIC PEPTIDE < 36 pg/mL (<=900)
== END | disposition home or self-care (01) ==
LOC: VSLAB 12:05
DX: R06.02 Shortness of breath (principal)
CPT/HCPCS: 36415; 80053; 83880; 84443; 85025

== ENCOUNTER → 2025-06-16 | Outpatient (CLI) | payer MEDICARE, SELFPAY | END | disposition home or self-care (01) | LOC: LAB 09:52 | DX: R06.02 Shortness of breath (principal); R73.01 Impaired fasting glucose | CPT/HCPCS: 36415; 83036 ==

== ENCOUNTER → 2025-07-29 | Outpatient (CLI) | payer MEDICARE, SELFPAY ==
[2025-07-29 16:44] LABS: Hematocrit 46.2 % (40-54); Hemoglobin 15.4 g/dL (13.0-16.5); Immature Granulocytes Count 0.030 X10^3/uL (0.0-0.0); Mean Corp Hgb Conc 33.3 g/dL (32-36); Mean Corpuscular Volume 97.3 fL (80-94); Mean Platelet Vol. 9.9 fl (6.2-12.0); NRBC Flagged by Analyzer 0 % (0-5); Platelet Count 210 K/mm3 (150-450); RBC Distribution Width CV 14.1 % (11.6-14.6); RBC Distribution Width SD 50.4 fl (35.1-43.9); Red Blood Count 4.75 M/mm3 (4.6-6.2); White Blood Count 8.6 K/mm3 (4.4-11.0)
[2025-07-29 17:17] LABS: AST(SGOT) 52 U/L (<=37); Alanine Aminotransfer ALT/SGPT 56 U/L (<=46); Albumin, Serum 3.5 g/dL (3.4-4.8); Alkaline Phosphatase 96 U/L (40-129); Anion Gap 7 (7-18); BUN 20 mg/dL (4-19); BUN/Creat Ratio 22.0 RATIO (10-20); Calcium,Total 9.0 mg/dL (7.6-11.0); Carbon Dioxide 25.3 mmol/L (20.0-29.0); Chloride 105 mmol/L (96-106); Globulin 2.7 g/dL (2.2-4.2); Glucose 108 mg/dL (70-99); Potassium 4.3 mmol/L (3.5-5.1)
== END | disposition home or self-care (01) ==
LOC: VSLAB 11:20
DX: J90 Pleural effusion, not elsewhere classified (principal)
CPT/HCPCS: 36415; 80053; 85025